=== PATIENT | female | born 1945 | race Caucasian/White ===

== ENCOUNTER → 2017-06-05 | Outpatient (CLI) | payer MEDICARE, BC ==
[~2017-06-05] MED LIST: ALEVE 220MG220 MG; MULTI VITAMINS1 TAB PO; TYLENOL 325MG325 MG
== END ==
LOC: MC.RAD 09:52
DX: Z12.31 Encounter for screening mammogram for malignant neoplasm of breast (principal)

== ENCOUNTER 2017-11-23 09:11 | Observation (INO) | payer MEDICARE, BC ==
[~2017-11-23] VITALS: Ht 158.8 cm; Wt 75.7 kg
[2017-12-15] VITALS (12 sets, daily range): BP systolic 94–140; BP diastolic 40–70; PULSE 72–95; TEMP 97.3–98.5
[2017-12-15] MEDS ORDERED: PRAVACHOL 40MG40 MG PO (06:31)
[2017-12-15] MEDS ORDERED: ASPIRIN 81M81 MG/TA2 PO (06:33)
[2017-12-15] MEDS ORDERED: CENTRUM SILVER1 CTB PO (06:38)
[2017-12-15] MEDS ORDERED: D-2000 90 MG-201 TAB PO (06:38)
[2017-12-16 02:12] VITALS: BP 105/35; PULSE 84; TEMP 98
[2017-12-16 05:18] VITALS: BP 108/43; PULSE 80; TEMP 97.9
[2017-12-16 07:19] LABS: HEMOGLOBIN 11.5 g/dl (12.5-16.0)
[2017-12-16 07:33] LABS: CALCIUM 9.4 mg/dL (8.4-10.2); CREATININE, serum 1.01 mg/dL (0.52-1.25); POTASSIUM 4.2 mmol/L (3.4-5.0)
[2017-12-16 09:53] VITALS: BP 117/50; PULSE 82; TEMP 98.4
== END 2017-12-16 14:35 | disposition home or self-care (01) ==
LOC: INPTSU 12-15 05:33 → SURG 12-15 05:33
PROVIDERS: Urology
DX: N36.42 Intrinsic sphincter deficiency (ISD) (principal); N99.3 Prolapse of vaginal vault after hysterectomy; N39.3 Stress incontinence (female) (male); E78.00 Pure hypercholesterolemia, unspecified; Z79.82 Long term (current) use of aspirin
CPT/HCPCS: A4314; A9284; C1713; C1771; C1781; G0378; J0690; J1100; J1650; J1885; J1956; J2250; J2405; J2550; J2704; J3010; J7120

== ENCOUNTER → 2018-05-26 | Outpatient (REF) ==
[~2018-05-26] MED LIST changes: +ASPIRIN 81M81 MG/TA2 PO; +CENTRUM SILVER1 CTB PO; +D-2000 90 MG-201 TAB PO; +PRAVACHOL 40MG40 MG PO
== END ==
LOC: ZLAB.WCH 15:31
DX: Z01.89 Encounter for other specified special examinations (principal)

== ENCOUNTER → 2018-06-02 | Outpatient (REF) | LOC: ZLAB.WCH 15:55 | DX: Z01.89 Encounter for other specified special examinations (principal) ==

== ENCOUNTER → 2018-06-09 | Outpatient (REF) | LOC: ZLAB.WCH 15:54 | DX: Z01.89 Encounter for other specified special examinations (principal) ==

== ENCOUNTER → 2018-06-15 | Outpatient (REF) | LOC: ZLAB.WCH 16:08 | DX: Z01.89 Encounter for other specified special examinations (principal) ==

== ENCOUNTER → 2018-06-29 | Outpatient (REF) | LOC: ZLAB.WCH 14:15 | DX: Z01.89 Encounter for other specified special examinations (principal) ==

== ENCOUNTER → 2018-07-07 | Outpatient (REF) | LOC: ZLAB.WCH 15:51 | DX: Z01.89 Encounter for other specified special examinations (principal) ==

== ENCOUNTER → 2018-08-13 | Outpatient (REF) | LOC: ZLAB.WCH 14:24 | DX: Z01.89 Encounter for other specified special examinations (principal) ==

== ENCOUNTER → 2018-08-16 | Outpatient (REF) | LOC: ZLAB.WCH 16:45 | DX: Z01.89 Encounter for other specified special examinations (principal) ==

== ENCOUNTER → 2018-08-30 | Outpatient (REF) | LOC: ZLAB.WCH 15:06 | DX: Z01.89 Encounter for other specified special examinations (principal) ==

== ENCOUNTER → 2018-11-23 | Outpatient (REF) | LOC: ZLAB.WCH 15:59 | DX: Z01.89 Encounter for other specified special examinations (principal) ==

== ENCOUNTER → 2018-11-29 | Outpatient (CLI) | payer MEDICARE, BC | LOC: MC.RAD 11:04 | DX: Z12.31 Encounter for screening mammogram for malignant neoplasm of breast (principal) ==

== ENCOUNTER → 2020-02-14 | Outpatient (CLI) | payer MEDICARE, BC | LOC: MC.RAD 11:29 | DX: Z12.31 Encounter for screening mammogram for malignant neoplasm of breast (principal) ==

== ENCOUNTER → 2021-02-15 | Outpatient (CLI) | payer MEDICARE, BC | LOC: MC.RAD 11:30 | DX: Z12.31 Encounter for screening mammogram for malignant neoplasm of breast (principal) ==

== ENCOUNTER → 2022-02-20 | Outpatient (CLI) | payer MEDICARE, BC | LOC: MC.RAD 14:22 | DX: Z12.31 Encounter for screening mammogram for malignant neoplasm of breast (principal) ==